=== PATIENT | male | born 1990 | race Two or more races ===

== ENCOUNTER 2017-06-14 08:24 | Emergency (ER) | payer MEDICAID, OTHER ==
[~2017-06-14] VITALS: Ht 167.6 cm; Wt 68.0 kg
[2017-06-14] MEDS ORDERED: LORazepam 2MG/ML-1ML VIAL ONE (08:33)
[2017-06-14] MEDS ORDERED: LIDOCAINE 2%HCL (LOCAL ANESTH.) INJ 20ML MDV ONE (08:37)
[2017-06-14] MEDS ORDERED: NEOMYCIN-BACITRACIN-POLYM UNITDOSE PKG TOP OINT TOP ONE ×2 (08:58→09:30)
[2017-06-14] MEDS ORDERED: cefTRIAXone 1GM/10ml IVPUSH 10 ML IV ONE (09:15)
[2017-06-14] MEDS ORDERED: LORazepam 2MG/ML-1ML VIAL IV ONE (09:15)
[2017-06-14] MEDS ORDERED: LIDOCAINE HCL 2 %PF INJ 10ML AMP IJ ONE (09:30)
[2017-06-14] MEDS ORDERED: SODIUM CHLORIDE 0.9% 2,050 ML IV ONE (09:30)
[2017-06-14] MEDS ORDERED: SODIUM CHLORIDE 0.9% 1,000 ML IV ONE (09:30)
[2017-06-14] MEDS ORDERED: TETANUS-DIPTH-ACEL PERTUSSIS 0.5ML SYRG IM ONE (09:45)
[2017-06-14] MEDS ORDERED: NALBUPHINE HCL 10 MG/1ml INJECTION ONE (10:33)
[2017-06-14] MEDS ORDERED: PROMETHAZINE HCL 25 MG/ML 1ML ONE (10:33)
[2017-06-14] MEDS ORDERED: PROMETHAZINE HCL 25 MG/ML 1ML IV ONE (10:45)
[2017-06-14] MEDS ORDERED: NALBUPHINE HCL 10 MG/1ml INJECTION IV ONE (10:45)
[2017-06-14 12:05] VITALS: BP 125/90
== END 2017-06-14 11:31 | disposition short-term general hospital (02) ==
LOC: ER 08:24
DX: S71.101A Unspecified open wound, right thigh, initial encounter (principal); I74.3 Embolism and thrombosis of arteries of the lower extremities; J45.909 Unspecified asthma, uncomplicated; Z23 Encounter for immunization; X58.XXXA Exposure to other specified factors, initial encounter; Y93.89 Activity, other specified; Y92.89 Other specified places as the place of occurrence of the external cause; Y99.8 Other external cause status
CPT/HCPCS: 12002; 90471; 90715; 93926; 96361; 96374; 96375; 99285; J2060; J2300; J2550

== ENCOUNTER 2017-06-24 10:41 | Emergency (ER) | payer MEDICAID ==
[~2017-06-24] VITALS: Ht 170.2 cm; Wt 63.5 kg
[2017-06-24 12:16] VITALS: BP 106/82
[2017-06-24] MEDS ORDERED: traMADol HCL 50 MG TAB PO ONE (12:30)
== END 2017-06-24 12:43 | disposition home or self-care (01) ==
LOC: ER 10:51
DX: S81.812D Laceration without foreign body, left lower leg, subsequent encounter (principal); X58.XXXD Exposure to other specified factors, subsequent encounter; J45.909 Unspecified asthma, uncomplicated